=== PATIENT | female | born 1970 | race Caucasian/White ===

== ENCOUNTER 2017-02-02 21:02 | Observation (INO) | payer SELFPAY ==
[2017-02-02 21:00] VITALS: PULSE 69
[2017-02-02 21:24] VITALS: BP 163/91; PULSE 69; RESP 20; TEMP 97.7; O2SAT 96
[2017-02-02] MEDS ORDERED: ACETAMINOPHEN 325 MG TAB PO PRN (22:45)
[2017-02-02] MEDS ORDERED: ONDANSETRON HCL 4 MG/2 ML VIAL IVP PRN (22:45)
[2017-02-02] MEDS ORDERED: NITROGLYCERIN 0.4 MG SL 25 TABS/BTL SL PRN (22:45)
[2017-02-02] MEDS ORDERED: SODIUM CHLORIDE 0.9% FLUSH 10 ML FLUSH IV FLUSH PRN (22:45)
[2017-02-02] MEDS ORDERED: NALOXONE HCL 0.4 MG/ML AMP IV PUSH PRN (22:45)
[2017-02-02] MEDS ORDERED: cloNIDine HCL 0.1 MG TAB PO PRN (22:45)
[2017-02-02] MEDS: SODIUM CHLOR 0.9% 1000 ML INJ 1,000 ML IV SCH (23:08)
[2017-02-02 23:29] LABS: CREATINE KINASE 1836 U/L (26-192)
[2017-02-02 23:41] LABS: CKMB 12.1 NG/ML (0.5-3.6)
[2017-02-03] VITALS (8 sets, daily range): BP systolic 142–166; BP diastolic 84–94; PULSE 57–68; RESP 18–20; TEMP 96.4–97.8; O2SAT 92–96
[2017-02-03 05:13] LABS: CHLORIDE 108 MEQ/L (98-107); POTASSIUM 3.3 MEQ/L (3.5-5.1); SODIUM (NA) 140 MEQ/L (136-145)
[2017-02-03 05:16] LABS: ANION GAP 7 MEQ/L (5-15); BLOOD UREA NITROGEN 13 MG/DL (7-18)
[2017-02-03 05:19] LABS: GLOMERULAR FILTRATION RATE 48 ML/MIN (>89)
[2017-02-03 05:34] LABS: CREATINE KINASE 1404 U/L (26-192)
[2017-02-03 05:52] LABS: CKMB 9.5 NG/ML (0.5-3.6)
[2017-02-03 07:47] LABS: AUTOMATED NEUTROPHIL # 4.1 TH/MM3 (1.8-7.7); BASOPHIL # 0.1 TH/MM3 (0-0.2); BASOPHIL % 0.9 % (0.0-2.0); EOSINOPHIL # 0.2 TH/MM3 (0-0.4); EOSINOPHIL % 2.8 % (0.0-4.0); LYMPH % 20.7 % (9.0-44.0); LYMPHOCYTE # 1.3 TH/MM3 (1.0-4.8); MEAN CELL VOLUME 108.4 FL (80.0-100.0); MEAN CORPUSCULAR HEMOGLOBIN 36.4 PG (27.0-34.0); MEAN CORPUSCULAR HGB CONC 33.6 % (32.0-36.0); MONO % 7.6 % (0.0-8.0); PLATELET COUNT 260 TH/MM3 (150-450); RED BLOOD COUNT 3.33 MIL/MM3 (4.00-5.30); RED CELL DISTRIBUTION WIDTH 16.6 % (11.6-17.2); WHITE BLOOD COUNT 6.2 TH/MM3 (4.0-11.0)
[2017-02-03 07:50] LABS: HEMO FLAGS DIFF FINAL
[2017-02-03] MEDS ORDERED: SODIUM CHLORIDE 0.9% FLUSH 10 ML FLUSH IV FLUSH SCH (09:00)
[2017-02-03] MEDS ORDERED: ASPIRIN 325 MG TAB PO SCH (09:00)
[2017-02-03] MEDS: SODIUM CHLOR 0.9% 1000 ML INJ 1,000 ML IV SCH (09:02)
[2017-02-03] MEDS ORDERED: POTASSIUM CHLORIDE 20 MEQ CONTROLLED RELEASE TAB PO ONE (11:00)
[2017-02-03] MEDS ORDERED: LISINOPRIL 20 MG TAB PO SCH (11:00)
--- NOTE | 2017-02-03 12:02 | HHI.HP ---
[facility] No Primary Care Physician Admission Diagnosis Elevated blood pressure, hypertension Diagnoses: (1) Hypertensive urgency (2) Chest pain Travel History International Travel<30 Days: No Contact w/Intl Traveler <30 Da: No Traveled to Known Affected Are: No History of Present Illness This is a pleasant 46 year-old female with past medical history of hypertension, anxiety, tobacco use, chronic neck and back pain who presented to the [place] emergency department yesterday for evaluation of elevated blood pressure and has not been on any medication for this.. History was obtained from the patient and her at bedside. The patient has been without insurance for some time and has been unable to see a physician. Yesterday her blood pressure was quite elevated which worried her so they present to the ER. The patient does not take any blood pressure medication. The patient states that she has been having retrosternal chest pain for several months which is intermittent. Seems to be brought on by drinking coffee. Is not associated with exercise. No radiation or diaphoresis. No palpitations. No pedal edema. Chest pain is "deep" and moderate in intensity. No alleviating factors. questions if it is related to the anxiety. In the emergency department she received labetalol IV for this blood pressure. EKG was obtained which showed no acute ischemia. Troponin was negative. states that she fell 2 years ago in [facility] and underwent MRIs of her spine and was told she had degenerative disc disease. Since then she has been relatively inactive. Review of Systems Constitutional: DENIES: Fever, Chills Ears, nose, mouth, throat: DENIES: Throat pain, Hoarseness Respiratory: DENIES: Cough, Shortness of breath Cardiovascular: COMPLAINS OF: Chest pain, DENIES: Palpitations, Syncope, Dyspnea on Exertion Gastrointestinal: DENIES: Nausea, Vomiting Genitourinary: DENIES: Urinary frequency, Dysuria Musculoskeletal: COMPLAINS OF: Back pain, Neck pain Neurologic: COMPLAINS OF: Paresthesias (patient states she has chronic paresthesias in the left arm attributed to her neck pain.), DENIES: Abnormal gait, Localized weakness Past Family Social History Past Medical History Tobaccoism Anxiety Alcohol abuse Hypertension Chronic neck and back pain History of hypothyroidism however she does not take Synthroid as it makes her feel more anxious Reported Medications Allergies Coded Allergies Type Severity Reaction Last Updated Verified No Known Allergies 02/02/17 No Allergies: Coded Allergies: No Known Allergies (Unverified , 02/02/17) Family History Patient is not sure she is estranged from her family but denies known history of coronary artery disease. Social History She does smoke tobacco for many years. Drinks 3-4 beers and 2 rigoberto spritzer's about 3-4 times per week. Physical Exam Vital Signs Vital Signs Date Time Temp Pulse Resp B/P (MAP) Pulse Ox O2 Delivery O2 Flow Rate FiO2 02/03/17 09:57 97.3 68 18 142/89 (106) 96 02/03/17 09:33 92 21 02/03/17 08:00 97.3 68 18 142/89 (106) 96 02/03/17 04:15 95 21 02/03/17 04:00 96.4 57 20 148/91 (110) 93 02/03/17 00:00 97.3 62 20 143/84 (103) 95 02/02/17 21:24 97.7 69 20 163/91 (115) 96 02/02/17 21:00 69 Physical Exam GENERAL: Well-nourished, well-developed patient. SKIN: Warm and dry. HEAD: Normocephalic. EYES: No scleral icterus. No injection or drainage. NECK: Supple, trachea midline. No JVD or lymphadenopathy. CARDIOVASCULAR: Regular rate and rhythm without murmurs, gallops, or rubs. RESPIRATORY: Breath sounds equal bilaterally. No accessory muscle use. GASTROINTESTINAL: Bowel sounds normal. Abdomen soft, non-tender, nondistended. EXTREMITIES: No cyanosis, or edema. NEUROLOGICAL: Awake, alert, and oriented x 3. Non-focal. Laboratory Laboratory Tests Test 02/02/17 22:46 02/03/17 04:45 02/03/17 06:47 Total Creatine Kinase 1836 1404 Creatine Kinase MB 12.1 9.5 Creatine Kinase MB % 0.7 0.7 Troponin I LESS THAN 0.02 LESS THAN 0.02 Blood Urea Nitrogen 13 Creatinine 1.20 Random Glucose 82 Calcium Level 8.8 Sodium Level 140 Potassium Level 3.3 Chloride Level 108 Carbon Dioxide Level 25.0 Anion Gap 7 Estimat Glomerular Filtration Rate 48 White Blood Count 6.2 Red Blood Count 3.33 Hemoglobin 12.1 Hematocrit 36.0 Mean Corpuscular Volume 108.4 Mean Corpuscular Hemoglobin 36.4 Mean Corpuscular Hemoglobin Concent 33.6 Red Cell Distribution Width 16.6 Platelet Count 260 Mean Platelet Volume 8.4 Neutrophils (%) (Auto) 68.0 Lymphocytes (%) (Auto) 20.7 Monocytes (%) (Auto) 7.6 Eosinophils (%) (Auto) 2.8 Basophils (%) (Auto) 0.9 Neutrophils # (Auto) 4.1 Lymphocytes # (Auto) 1.3 Monocytes # (Auto) 0.5 Eosinophils # (Auto) 0.2 Basophils # (Auto) 0.1 CBC Comment DIFF FINAL Differential Comment Result Diagram: 02/03/17 0647 02/03/17 0445 Imaging Chest x-ray shows no acute disease EKG shows no acute ischemia possible old inferior and anterior septal myocardial infarction, low voltage QRS complex Caprini VTE Risk Assessment Caprini VTE Risk Assessment: No/Low Risk (score <= 1) Caprini Risk Assessment Model Point Value = 1 Point Value = 2 Point Value = 3 Point Value = 5 Age 41-60 Minor surgery BMI > 25 kg/m2 Swollen legs Varicose veins or History of unexplained or recurrent spontaneous Oral contraceptives or hormone replacement Sepsis (< 1 month) Serious lung disease, including pneumonia (< 1 month) Abnormal pulmonary function Acute myocardial infarction Congestive heart failure (< 1 month) History of inflammatory bowel disease Medical patient at bed rest Age 61-74 Arthroscopic surgery Major open surgery (> 45 min) Laparoscopic surgery (> 45 min) Malignancy Confined to bed (> 72 hours) Immobilizing plaster cast Central venous access Age >= 75 History of VTE Family history of VTE Factor V Leiden Prothrombin [id number] Lupus anticoagulant Anticardiolipin antibodies Elevated serum homocysteine Heparin-induced thrombocytopenia Other congenital or acquired thrombophilia Stroke (< 1 month) Elective arthroplasty Hip, pelvis, or leg fracture Acute spinal cord injury (< 1 month) Prophylaxis Regimen Total Risk Factor Score Risk Level Prophylaxis Regimen 0-1 Low Early ambulation 2 Moderate Order ONE of the following: *Sequential Compression Device (SCD) *Heparin 5000 units SQ BID 3-4 Higher Order ONE of the following medications: *Heparin 5000 units SQ TID *Enoxaparin/Lovenox 40 mg SQ daily (WT < 150 kg, CrCl > 30 mL/min) *Enoxaparin/Lovenox 30 mg SQ daily (WT < 150 kg, CrCl > 10-29 mL/min) *Enoxaparin/Lovenox 30 mg SQ BID (WT < 150 kg, CrCl > 30 mL/min) AND/OR *Sequential Compression Device (SCD) 5 or more Highest Order ONE of the following medications: *Heparin 5000 units SQ TID (Preferred with Epidurals) *Enoxaparin/Lovenox 40 mg SQ daily (WT < 150 kg, CrCl > 30 mL/min) *Enoxaparin/Lovenox 30 mg SQ daily (WT < 150 kg, CrCl > 10-29 mL/min) *Enoxaparin/Lovenox 30 mg SQ BID (WT < 150 kg, CrCl > 30 mL/min) AND *Sequential Compression Device (SCD) Assessment and Plan Assessment and Plan 46 year-old female presents to the ER for elevated blood pressure -Hypertensive urgency, resolved. Blood pressure with improved control. Will start her on lisinopril 20 mg daily and provide 30 day supply. -Intermittent chest pain for several months. She has multiple risk factors including tobacco use, hypertension, abnormal EKG. Troponin and EKGs are negative for acute ischemia. We'll plan for nuclear stress test today. -Tobaccoism, counseled on cessation. -Mild rhabdomyolysis. Improved. Patient counseled to increase by mouth fluids. -Patient currently does not have insurance, will ask case management to provide them the number to the [facility] so that she can make an appointment. states he will. A pocket for her to see physician. -DVT prophylaxis with SCDs. If stress test negative she may be discharged home. Merline Richey MD Feb 03, 2017 12:02
[2017-02-03] MEDS ORDERED: LISI-515 PO (12:05)
[2017-02-03] MEDS ORDERED: REGADENOSON INJ 0.4 MG/5 ML SYR IV ONE (16:04)
[2017-02-03] MEDS ORDERED: AMINOPHYLLINE INJ 250 MG/10 ML VIAL IV ONE (16:05)
--- NOTE | 2017-02-03 16:38 | RADRPT ---
EXAM DATE/TIME: 02/03/2017 15:20 [place] COMPARISON: No previous studies available for comparison. INDICATIONS : Chest pain. Angina. DOSE: 27.2 mCi Tc99m Myoview at stress. 8.2 mCi Tc99m Myoview at rest. 0.4 mg Lexiscan STRESS SYMPTOMS: Dyspnea, weird feeling, abdominal pressure and headache. MEDICATIONS: 1.) 100 mg Aminophylline IV EJECTION FRACTION: 64% MEDICAL HISTORY : Hypertension. Smoker. SURGICAL HISTORY : section. ENCOUNTER: Initial ACUITY: 1 day PAIN SCALE: 0/10 LOCATION: Substernal chest TECHNIQUE: The patient underwent pharmacologic stress with infusion of prescribed dose. Continuous ECG tracing was monitored during stress. Gated SPECT imaging was performed after stress and conventional SPECT i maging was performed at rest. The examination was performed on a SPECT/CT scanner, both attenuation and non-corrected datasets were reviewed. FINDINGS: DISTRIBUTION: The maximum perfused segment at stress is in the lateral wall. PERFUSION STUDY: The pattern of perfusion at stress is within normal limits. GATED STUDY: There is intact wall motion and thickening without hypokinetic or dyskinetic segments. CONCLUSION: No reversible defects observed to suggest acute ischemia. RISK CATEGORY: Low Alfa Benítez Jr., MD on February 03, 2017 at 16:35 Board Certified Radiologist. This report was verified electronically.
--- NOTE | 2017-02-03 17:06 | EKG ---
Date Performed: 02/03/2017 Time Performed: 04:19:06 PTAGE: 46 years EKG: Sinus rhythm LOW QRS VOLTAGE IN PRECORDIAL LEADS POSSIBLE ANTERIOR MYOCARDIAL INFARCTION INFERIOR MYOCARDIAL INFA RCTION ABNORMAL ECG PREVIOUS TRACING : 02/02/2017 22.48 Compared to prior tracing no significant change DOCTOR: Bryce Bennett Interpretating Date/Time 02/03/2017 17:05:18
--- NOTE | 2017-02-03 17:16 | EKG ---
Date Performed: 02/02/2017 Time Performed: 22:48:43 PTAGE: 46 years EKG: Sinus rhythm LOW QRS VOLTAGE IN PRECORDIAL LEADS INFERIOR MYOCARDIAL INFARCTION ANTEROSEPTAL MYOCARDIAL INFARCTIO N ABNORMAL ECG NO PREVIOUS TRACING DOCTOR: Bryce Bennett Interpretating Date/Time 02/03/2017 17:14:21
--- NOTE | 2017-02-04 13:21 | TR ---
Date Performed: 02/03/2017 Time Performed: 15:42:29 DOCTOR: Jorge Taylor DRUG LIST: CLINICAL HISTORY: REASON FOR TEST: REASON FOR ENDING: OBSERVATION: CONCLUSION: Lexiscan stress test was performed under standard four minute protocol. Radionuclid e was injected one minute prior to ending the test. No electrocardiographic abormalities were present to suggest ischemia. Nuclear imaging and interpretation are pending. COMMENTS:
== END 2017-02-03 17:53 | disposition home or self-care (01) ==
LOC: PHEDDLT 21:02 → PH3A 21:04
PROVIDERS: ADMIT Family Medicine; ATTEND Family Medicine
DX: I16.0 Hypertensive urgency (principal); R07.9 Chest pain, unspecified; M54.2 Cervicalgia; M54.9 Dorsalgia, unspecified; F41.9 Anxiety disorder, unspecified; E03.9 Hypothyroidism, unspecified; F17.210 Nicotine dependence, cigarettes, uncomplicated; R94.31 Abnormal electrocardiogram [ECG] [EKG]; M62.82 Rhabdomyolysis
CPT/HCPCS: 71010; 78452; 80048; 80307; 81001; 82550; 82552; 83690; 83735; 84484; 85025; 85610; 85730; 93005; 93017; 96360; 96361; 99285; A9502; G0378; J0280; J2060; J2785; J7030